=== PATIENT | male | born 2000 | race Caucasian/White ===

== ENCOUNTER 2019-05-27 22:33 | Emergency (ER) | payer OTHER ==
[2019-05-27 22:37] VITALS: RESP 18; TEMP 98.6
[2019-05-27] MEDS ORDERED: SODIUM CHLORIDE 0.9% 1,000 ML IV STA (22:49)
[2019-05-27] MEDS ORDERED: MORPHINE SULFATE 2 MG/ML SYRINGE IVP STA (22:49)
--- NOTE | 2019-05-27 23:03 | ED ---
General Adult HPI - General Chief complaint: Abdominal Pain Stated complaint: Groin pain Time Seen by Provider: 05/27/19 22:47 Source: patient Mode of arrival: ambulatory Limitations: no limitations - History of Present Illness Initial comments: Dictation was produced using [employer] dictation software. please excuse any grammatical, word or spelling errors. Chief Complaint: 18-year-old male presents with right lower quadrant pain. History of Present Illness: 18-year-old male who presents with right lower quadrant pain over the last 2-3 hours. Patient states he has intermittent mild cramping to the right lower quadrant. He feels like his symptoms are worse with movements. Patient denies any history of abdominal surgery. He does complain of some mild right groin tenderness. Denies any dysuria. Patient is sexually active however has no history of sexually transmitted disease. Patient has no nausea vomiting. No fevers or chills. No diarrhea. The ROS documented in this emergency department record has been reviewed and confirmed by me. Those systems with pertinent positive or negative responses have been documented in the HPI. All other systems are other negative and/or noncontributory. PHYSICAL EXAM: General Impression: Alert and oriented x3, not in acute distress HEENT: Normocephalic atraumatic, extra-ocular movements intact, pupils equal and reactive to light bilaterally, mucous membranes moist. Cardiovascular: Heart regular rate and rhythm, S1&S2 audible, no murmurs, rubs or gallops Chest: Lungs clear to auscultation bilaterally, no rhonchi, no wheeze, no rales Abdomen: Bowel sounds present, abdomen soft, mild tenderness to right lower quadrant, negative Deleon's, negative rebound tenderness. Mild pain to palpation at McBurney's point., non-distended, no organomegaly Musculoskeletal: Pulses present and equal in all extremities, no peripheral edema Motor: no focal deficits noted Neurological: CN II-XII grossly intact, no focal motor or sensory deficits noted Skin: Intact with no visualized rashes Psych: Normal affect and mood : No testicular tenderness, no palpable hernia with Valsalva ED course: 18 yo male presents with chief complaint of right lower quadrant cramping. Vital signs upon arrival are within acceptable limits. Patient's physical exam is benign except for very minimal tenderness to palpation at the right groin area. exam is normal. Computed tomography scan was obtained showing no acute processes. This point is unclear what is causing patient's symptoms. There is concern that maybe it involves a soft tissue strain versus hip bursitis. Nonetheless patient clear for discharge. Patient told to follow up with primary care physician. She provided with lidocaine patch. - Related Data Home Medications Medication Instructions Recorded Confirmed No Known Home Medications 05/27/19 05/27/19 Allergies Allergy/AdvReac Type Severity Reaction Status Date / Time No Known Allergies Allergy Verified 05/27/19 22:43 Review of Systems ROS Statement: Those systems with pertinent positive or pertinent negative responses have been documented in the HPI. ROS Other: All systems not noted in ROS Statement are negative. Past Medical History Past Medical History: No Reported History History of Any Multi-Drug Resistant Organisms: None Reported Past Surgical History: Appendectomy Past Psychological History: No Psychological Hx Reported Smoking Status: Current every day smoker Past Alcohol Use History: None Reported Past Drug Use History: None Reported General Exam Limitations: no limitations Course Vital Signs 05/27/19 22:35 Temperature 98.6 F Pulse Rate 98 Respiratory 18 Rate Blood Pressure 140/77 O2 Sat by Pulse 100 Oximetry Medical Decision Making - Lab Data Result diagrams: 05/27/19 22:58 05/27/19 22:58 Lab Results 05/27/19 05/27/19 05/27/19 Range/Units 22:58 22:58 22:58 WBC 11.1 H (4.0-11.0) k/uL RBC 5.24 (4.30-5.90) m/uL Hgb 15.3 (13.0-17.5) gm/dL Hct 44.7 (39.0-53.0) % MCV 85.2 (80.0-100.0) fL MCH 29.2 (25.0-35.0) pg MCHC 34.2 (31.0-37.0) g/dL RDW 12.2 (11.5-15.5) % Plt Count 415 (150-450) k/uL Neutrophils % 53 % Lymphocytes % 37 % Monocytes % 5 % Eosinophils % 2 % Basophils % 1 % Neutrophils # 5.9 (1.3-7.7) k/uL Lymphocytes # 4.1 (1.0-4.8) k/uL Monocytes # 0.6 (0-1.0) k/uL Eosinophils # 0.2 (0-0.7) k/uL Basophils # 0.1 (0-0.2) k/uL PT 10.1 (9.0-12.0) sec INR 0.9 (<1.2) APTT 25.3 (22.0-30.0) sec Sodium 141 (137-145) mmol/L Potassium 3.9 (3.5-5.1) mmol/L Chloride 103 (98-107) mmol/L Carbon Dioxide 29 (22-30) mmol/L Anion Gap 9 mmol/L BUN 10 (9-20) mg/dL Creatinine 0.90 (0.66-1.25) mg/dL Est GFR (CKD-EPI)AfAm >90 (>60 ml/min/1.73 sqM) Est GFR (CKD-EPI)NonAf >90 (>60 ml/min/1.73 sqM) Glucose 91 (74-99) mg/dL Calcium 9.7 (8.4-10.2) mg/dL Total Bilirubin 0.6 (0.2-1.3) mg/dL AST 30 (17-59) U/L ALT 31 (21-72) U/L Alkaline Phosphatase 59 (38-126) U/L Total Protein 7.0 (6.3-8.2) g/dL Albumin 4.4 (3.5-5.0) g/dL Lipase 43 (23-300) U/L Urine Color Urine Appearance (Clear) Urine pH (5.0-8.0) Ur Specific [place] (1.001-1.035) Urine Protein (Negative) Urine Glucose (UA) (Negative) Urine Ketones (Negative) Urine Blood (Negative) Urine Nitrite (Negative) Urine Bilirubin (Negative) Urine Urobilinogen (<2.0) mg/dL Ur Leukocyte Esterase (Negative) 05/28/19 Range/Units 00:02 WBC (4.0-11.0) k/uL RBC (4.30-5.90) m/uL Hgb (13.0-17.5) gm/dL Hct (39.0-53.0) % MCV (80.0-100.0) fL MCH (25.0-35.0) pg MCHC (31.0-37.0) g/dL RDW (11.5-15.5) % Plt Count (150-450) k/uL Neutrophils % % Lymphocytes % % Monocytes % % Eosinophils % % Basophils % % Neutrophils # (1.3-7.7) k/uL Lymphocytes # (1.0-4.8) k/uL Monocytes # (0-1.0) k/uL Eosinophils # (0-0.7) k/uL Basophils # (0-0.2) k/uL PT (9.0-12.0) sec INR (<1.2) APTT (22.0-30.0) sec Sodium (137-145) mmol/L Potassium (3.5-5.1) mmol/L Chloride (98-107) mmol/L Carbon Dioxide (22-30) mmol/L Anion Gap mmol/L BUN (9-20) mg/dL Creatinine (0.66-1.25) mg/dL Est GFR (CKD-EPI)AfAm (>60 ml/min/1.73 sqM) Est GFR (CKD-EPI)NonAf (>60 ml/min/1.73 sqM) Glucose (74-99) mg/dL Calcium (8.4-10.2) mg/dL Total Bilirubin (0.2-1.3) mg/dL AST (17-59) U/L ALT (21-72) U/L Alkaline Phosphatase (38-126) U/L Total Protein (6.3-8.2) g/dL Albumin (3.5-5.0) g/dL Lipase (23-300) U/L Urine Color Yellow Urine Appearance Clear (Clear) Urine pH 5.5 (5.0-8.0) Ur Specific [place] 1.032 (1.001-1.035) Urine Protein Trace H (Negative) Urine Glucose (UA) Negative (Negative) Urine Ketones Negative (Negative) Urine Blood Negative (Negative) Urine Nitrite Negative (Negative) Urine Bilirubin Negative (Negative) Urine Urobilinogen <2.0 (<2.0) mg/dL Ur Leukocyte Esterase Negative (Negative) Disposition Clinical Impression: Abdominal pain Disposition: HOME SELF-CARE Condition: Good Instructions (If sedation given, give patient instructions): Abdominal Pain (ED) Is patient prescribed a controlled substance at d/c from ED?: No Referrals: None,Stated [Primary Care Provider] - 1-2 days Time of Disposition: 01:20
[2019-05-27 23:14] LABS: Basophils # (A) 0.1 k/uL (0-0.2); Basophils % (A) 1 %; Eosinophils # (A) 0.2 k/uL (0-0.7); Eosinophils % (A) 2 %; HCT 44.7 % (39.0-53.0); HGB 15.3 gm/dL (13.0-17.5); Lymphocytes # (A) 4.1 k/uL (1.0-4.8); Lymphocytes % (A) 37 %; MCH 29.2 pg (25.0-35.0); MCHC 34.2 g/dL (31.0-37.0); MCV 85.2 fL (80.0-100.0); Mean Platelet Volume 5.4; Monocytes # (A) 0.6 k/uL (0-1.0); Monocytes % (A) 5 %; Neutrophils # (A) 5.9 k/uL (1.3-7.7); Neutrophils % (A) 53 %; Platelet Count 415 k/uL (150-450); RBC 5.24 m/uL (4.30-5.90); RDW 12.2 % (11.5-15.5); WBC 11.1 k/uL (4.0-11.0)
[2019-05-27 23:27] LABS: ALT 31 U/L (21-72); AST 30 U/L (17-59); African American GFR (CKD) >90 (>60 ml/min/1.73 sqM); Albumin 4.4 g/dL (3.5-5.0); Alkaline Phosphatase 59 U/L (38-126); Anion Gap 9 mmol/L; Blood Urea Nitrogen 10 mg/dL (9-20); Calcium 9.7 mg/dL (8.4-10.2); Carbon Dioxide 29 mmol/L (22-30); Chloride 103 mmol/L (98-107); Glucose 91 mg/dL (74-99); INR 0.9 (<1.2); Potassium 3.9 mmol/L (3.5-5.1); Prothrombin Time 10.1 sec (9.0-12.0); Sodium 141 mmol/L (137-145); Total Bilirubin 0.6 mg/dL (0.2-1.3)
[2019-05-27 23:28] LABS: Partial Thromboplastin Time 25.3 sec (22.0-30.0)
--- NOTE | 2019-05-27 23:53 | XR ---
EXAMINATION TYPE: XR abdomen 1V DATE OF EXAM: 05/27/2019 COMPARISON: NONE HISTORY: Right lower quadrant pain TECHNIQUE: 2 views upright FINDINGS: There is no sign of intestinal obstruction or pneumoperitoneum. Fecal pattern is normal. Ida ng bases are clear. There are no pathologic calcifications. IMPRESSION: Nonacute abdomen.
[2019-05-28 00:10] LABS: Appearance,Urine Clear (Clear); Bilirubin,Urine Negative (Negative); Blood,Urine Negative (Negative); Color,Urine Yellow; Glucose,Urine (UA) Negative (Negative); Ketones,Urine Negative (Negative); Leukocyte Esterase,Urine Negative (Negative); Nitrite,Urine Negative (Negative); PH, Urine 5.5 (5.0-8.0); Protein,Urine Trace (Negative); Specific Gravity,Urine 1.032 (1.001-1.035); Urobilinogen,Urine <2.0 mg/dL (<2.0)
[2019-05-28] MEDS ORDERED: KETOROLAC 30 MG/ML 1 ML VIAL IVP STA (00:16)
--- NOTE | 2019-05-28 00:48 | CT ---
EXAMINATION TYPE: CT abdomen pelvis w con DATE OF EXAM: 05/28/2019 COMPARISON: None HISTORY: RLQ abd pain/groin pain CT DLP: 1431.00 mGycm Automated exposure control for dose reduction was used. TECHNIQUE: Helical acquisition of images was performed from the lung bases through the pelvis. CONTRAST: Performed without Oral Contrast and with IV Contrast, patient injected with 100 mL of Isovue 300. FINDINGS: Lung bases are clear. There is no pleural effusion. Heart size is normal. Liver spleen stomach pancreas gallbladder appear normal. Bile ducts are not dilated. There is no adrenal mass. Kidneys show satisfactory contrast opacification. There is no hydronephrosi s. Ureters are not dilated. There is no retroperitoneal adenopathy. Bladder distends smoothly. Bladde r is almost empty. There is no inguinal hernia. There is no free fluid in the pelvis. There is no mes enteric edema. There is no ascites or free air. There are small densities that could be surgical clip s from appendectomy. Appendix is not seen. There is no sign of a bowel obstruction. Lumbar vertebra have fairly normal spacing and alignment. Th ere is no compression fracture. Bony pelvis is intact. Hip joints appear normal. IMPRESSION: NEGATIVE CT SCAN ABDOMEN AND PELVIS. I DO NOT SEE A CAUSE FOR RIGHT LOWER QUADRANT PAIN.
[2019-05-28] MEDS ORDERED: LIDOCAINE 5% PATCH TOPICAL STA (01:20)
[2019-05-28 01:28] VITALS: BP 132/77; PULSE 77
== END 2019-05-28 01:28 | disposition home or self-care (01) ==
LOC: EC 22:33
DX: R10.31 Right lower quadrant pain (principal); F17.200 Nicotine dependence, unspecified, uncomplicated; Z90.89 Acquired absence of other organs
CPT/HCPCS: 36415; 80053; 83690; 85025; 85610; 85730; 81003; 74018; 74177; 99284; 96374; 96375; 96361 ×2; J1885; J2270; Q9967

== ENCOUNTER 2020-03-17 00:14 | Emergency (ER) | payer OTHER ==
--- NOTE | 2020-03-17 01:04 | ED ---
General Adult HPI - General Chief complaint: Headache Stated complaint: headache Time Seen by Provider: 03/17/20 00:23 Source: patient Mode of arrival: ambulatory Limitations: no limitations - History of Present Illness Initial comments: 19-year-old male presenting to the ER with a complaint of daily headaches for approximately 2 weeks. Patient reports that he seems to have some tension behind his right eye with no vision changes. He states the headaches come and go he cannot identify any exacerbating or relieving factors. Not associated with any vision change, fevers, focal neurologic deficits. He reports that the headaches occur almost daily, sometimes they last only 20-30 minutes, some days it lasts longer. He has not taken anything for the headaches of Tylenol Motrin or any other medications. She does admit that he suffers from seasonal ALLERGIES and is not currently doing anything to treat his seasonal ALLERGIES. In addition he states he hasn't had a vision test or seen composite assembler in a number of years. Patient also notes he has been checking his BP for a couple of days and noted that it is somewhat elevated. These 2 things together prompted him to come to the ER for evaluation. - Related Data Home Medications Medication Instructions Recorded Confirmed No Known Home Medications 05/27/19 05/27/19 Allergies Allergy/AdvReac Type Severity Reaction Status Date / Time amoxicillin Allergy Rash/Hives Verified 03/17/20 00:23 Review of Systems ROS Statement: Those systems with pertinent positive or pertinent negative responses have been documented in the HPI. ROS Other: All systems not noted in ROS Statement are negative. Past Medical History Past Medical History: No Reported History Additional Past Medical History / Comment(s): stomach ulcers History of Any Multi-Drug Resistant Organisms: None Reported Past Surgical History: Appendectomy Past Psychological History: No Psychological Hx Reported Smoking Status: Former smoker Past Alcohol Use History: Occasional Past Drug Use History: None Reported General Exam - General Exam Comments Initial Comments: Physical Exam GENERAL: Patient sleeping comfortably upon my initial evaluation Patient is well-developed and well-nourished. Patient is nontoxic and well-hydrated and is in no distress. HENT: Normocephalic, Atraumatic. Some tenderness to percussion of frontal and maxillary sinuses EYES: PERRL, EOMI PULMONARY: Unlabored respirations CARDIOVASCULAR: RRR Warm and well perfused extremities ABDOMEN: Non-distended SKIN: No rashes or bruising : Deferred NEUROLOGIC: Alert and oriented CN II-XII grossly intact Normal speech Normal gait MUSCULOSKELETAL: Moving all extremities with no apparent injury PSYCHIATRIC: No SI/HI Limitations: no limitations Course Vital Signs 03/17/20 03/17/20 00:17 01:40 Temperature 98.9 F 98 F Pulse Rate 68 81 Respiratory 20 18 Rate Blood Pressure 142/86 124/74 O2 Sat by Pulse 97 100 Oximetry Medical Decision Making - Medical Decision Making Upon my initial evaluation the patient was sleeping comfortably in bed, I woke the patient to discuss his complaint. He reports he's had intermittent headaches which seem to be worse on the right and periorbital not associated with any focal neurologic deficits or vision changes. He has not taken anything for the headaches, cannot identify any exacerbating or relieving factors. He does not treat his seasonal ALLERGIES and does admit to having suffering from those really leave. He has not seen an composite assembler since he was at grade school. Physical exam is unremarkable there is no nuchal rigidity pupils are equal round reactive to light there is no anisocoria Headache with no red flag symptoms, I discussed with patient that I think he should treat his seasonal ALLERGIES with supportive care and see an composite assembler before he have any aggressive testing such as computed tomography scan. Patient is agreeable with this plan She was also concerned about his blood pressure, blood pressure is mildly elevated I discussed with patient that though it is mildly elevated doesn't more any treatment or workup in the emergency department. I recommendeddiet, weight loss, avoidance of stimulants including caffeine and follow-up with primary care for reevaluation. Patient is agreeable to this plan. All questions pertaining to care were answered to the best of my ability return parameters were discussed with patient was discharged home in stable condition. Disposition Clinical Impression: Headache Disposition: HOME SELF-CARE Condition: Stable Instructions (If sedation given, give patient instructions): Acute Headache (ED) Is patient prescribed a controlled substance at d/c from ED?: No Referrals: None,Stated [Primary Care Provider] - 1-2 days
[2020-03-17 01:55] VITALS: BP 124/74; PULSE 81; RESP 18; TEMP 98
== END 2020-03-17 01:54 | disposition home or self-care (01) ==
LOC: EC 00:14
DX: R51 Headache (principal); Z87.891 Personal history of nicotine dependence; Z88.0 Allergy status to penicillin
CPT/HCPCS: 99283